=== PATIENT | female | born 1980 | race African-American/Black ===

== ENCOUNTER 2019-09-26 12:56 | Emergency (ER) | payer OTHER, SELFPAY ==
--- NOTE | ~2019-09-26 | XR_ITS ---
EXAMINATION: XR ankle LT min 3V, XR tibia fibula LT 2V DATE: 09/26/2019 13:41 INDICATION: Lateral left lower leg and ankle pain and bruising post fall TECHNIQUE: 1. Anteroposterior and lateral views of the left tibia and fibula were obtained. 2. Anteroposterior, oblique, mortise, and lateral views of the left ankle were obtained. COMPARISON: None. FINDINGS: Alignment is normal. No fracture. Small round corticated heterotopic ossicle near the tip of the late ral malleolus likely sequela of chronic sprain of the anterior talofibular ligament. Joint spaces are normal. No left knee or ankle joint effusions. Mild soft tissue swelling anterior to the ankle and o verlying the lateral malleolus and lateral aspect of the distal lower leg. IMPRESSION: 1. No acute osseous abnormality. Reviewed, dictated and finalized at location A. IMPRESSION: 1. No acute osseous abnormality.
[2019-09-26 13:06] VITALS: BP 120/84; PULSE 109; RESP 18; TEMP 37.1; O2SAT 100
--- NOTE | 2019-09-26 14:02 | ED.LOWEXIN ---
HPI - Extremity Injury (Lower) General Chief Complaint: Extremity Injury, Lower <Deng Starr PA-C - Last Filed: 09/26/19 14:05> Stated Complaint: L foot pain <Deng Starr PA-C - Last Filed: 09/26/19 14:05> Time Seen by Provider: 09/26/19 12:58 <Deng Starr PA-C - Last Filed: 09/26/19 14:05> Source: patient <LESLEY Krueger Last Filed: 09/26/19 14:05> Mode of arrival: ambulatory <Deng Starr PA-C - Last Filed: 09/26/19 14:05> Limitations: no limitations <LESLEY Krueger Last Filed: 09/26/19 14:05> History of Present Illness HPI Narrative: Patient is a 38-year-old female who presents to emergency department for evaluation of left leg pain slipped and fell on a wet surface this prior Tuesday with bruising to the left hip and lower leg patient notes moderate aching pain down around the ankle joint patient also notes some bruising to the left forearm but notes minimal pain at this location patient has not been seen for this complaint presents in no distress <Deng Starr PA-C - Last Filed: 09/26/19 14:05> Related Data Allergies/Adverse Reactions: Allergies Allergy/AdvReac Type Severity Reaction Status Date / Time No Known Allergies Allergy Unverified 07/26/16 10:19 <Deng Starr PA-C - Last Filed: 09/26/19 14:05> Review of Systems Review of Systems: All systems reviewed & are unremarkable except as noted in HPI and below <Deng Starr PA-C - Last Filed: 09/26/19 14:05> [facility] Family History Family History: Family History (Updated 06/09/17 @ 10:37 by DOCTOR UNKNOWN) Father Family history of coronary artery disease Patient's father is in good health Mother Hypertension Patient's mother is in good health <Deng Starr PA-C - Last Filed: 09/26/19 14:05> Social History Social History: Social History Smoking status: Never smoker Alcohol intake: current <Deng Starr PA-C - Last Filed: 09/26/19 14:05> Exam Narrative: Exam Narrative: GENERAL: Well-appearing, well-nourished, and in no acute distress. HEAD: Normocephalic, atraumatic. EYES: PERRLA and EOMI. ENT: Nares clear, no rhinorrhea or epistaxis. Mucous membranes moist. CHEST: Clear to auscultation. No respiratory distress. No wheezes rales or rhonchi HEART: Regular rate and rhythm. No murmur heard. EXTREMITIES: Normal range of motion. Bruising to the mid to lower lo and lateral ankle 2 bruises to the left lateral thigh. Bruising of the left mid forearm SKIN: Warm, dry, no rash. NEURO: No focal deficits. Alert and oriented x3. Neurovascularly intact. Capillary refill less than 2 seconds PSYCH: Normal mood and affect. <LESLEY Krueger Last Filed: 09/26/19 14:05> Course Course Emergency Course: Patient in the room in no distress aware of case findings treatment plan and diagnosis <LESLEY Krueger Last Filed: 09/26/19 14:05> Vital Signs Vital signs: Vital Signs Temperature 98.8 F 09/26/19 13:06 Pulse Rate 109 H 09/26/19 13:06 Respiratory Rate 18 09/26/19 13:06 Blood Pressure 120/84 09/26/19 13:06 Pulse Oximetry 100 09/26/19 13:06 Temperature 98.8 F 09/26/19 13:06 Pulse Rate 109 H 09/26/19 13:06 Respiratory Rate 18 09/26/19 13:06 Blood Pressure 120/84 09/26/19 13:06 Pulse Oximetry 100 09/26/19 13:06 <LESLEY Krueger Last Filed: 09/26/19 14:05> Vital Signs Temperature 98.8 F 09/26/19 13:06 Pulse Rate 109 H 09/26/19 13:06 Respiratory Rate 18 09/26/19 13:06 Blood Pressure 120/84 09/26/19 13:06 Pulse Oximetry 100 09/26/19 13:06 Temperature 98.8 F 09/26/19 13:06 Pulse Rate 109 H 09/26/19 13:06 Respiratory Rate 18 09/26/19 13:06 Blood Pressure 120/84 09/26/19 13:06 Pulse Oximetry 100 09/26/19 13:06 <Dee Van MD - Last Filed: 09/26/19 19:0
== END 2019-09-26 14:22 | disposition home or self-care (01) ==
PROVIDERS: Emergency Provider General Practice
DX: S93.402A Sprain of unspecified ligament of left ankle, initial encounter (principal); W01.0XXA Fall on same level from slipping, tripping and stumbling without subsequent striking against object, initial encounter
CPT/HCPCS: 73590; 73610; 99284

== ENCOUNTER 2020-05-29 12:40 | Emergency (ER) | payer OTHER, SELFPAY ==
[2020-05-29 13:01] VITALS: BP 129/87; PULSE 102; RESP 18; TEMP 38.1; O2SAT 99
--- NOTE | 2020-05-29 13:26 | ED.URI ---
HPI - URI/Sore Throat General Chief Complaint: Upper Respiratory Infection Stated Complaint: Chills,body aches,fever Time Seen by Provider: 05/29/20 13:25 Source: patient Mode of arrival: ambulatory Limitations: no limitations History of Present Illness HPI Narrative: Guerda Campbell is a 39-year-old female with a PMH of Covid in January who [facility] with fever that started today but body aches severe headache nausea and fatigue that started on Tuesday. She states that she feels worse as far as energy and muscle aches today although her headache is improved somewhat in the last day or 2. 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 EYES: Denies visual changes, redness, discharge. ENT: has rhinorrhea, has congestion, sore throat, otalgia. CARDIOVASCULAR: Denies chest pain, palpitations, edema. RESPIRATORY: Denies dyspnea, wheezing, cough GASTROINTESTINAL: Denies abdominal pain, nausea, vomiting, diarrhea. GENITOURINARY: Denies dysuria, hematuria, abnormal discharge SKIN: Denies rash or itching. NEUROLOGIC: Denies numbness, or focal weakness. PSYCHIATRIC: Denies anxiety or depression. Has myalgias PMFSH Past Medical History Medical History COVID-19 Had Covid in January 2020 Family History Family History Father Family history of coronary artery disease Patient's father is in good health Mother Hypertension Patient's mother is in good health Social History Social History Smoking status: Never smoker Alcohol intake: current Comments At time of signature, I agree with nursing past medical, surgical, social and family history. There is no relevant family history pertinent to the presenting complaint. Exam Narrative: Exam Narrative: GENERAL: This is a well-nourished, well-developed patient, in mild distress. Has fever HEAD: normocephalic, atraumatic. EYES:Sclera clear/white. Vision is grossly intact. EARS: External ears normal, auditory canals erythema and without drainage, TMs with fluid behind TMs without perforation. Hearing grossly intact. NOSE: External nose normal without nasal discharge, nares without redness, has rhinorrhea. THROAT: Mucous membranes moist, posterior pharynx erythema NECK: Neck supple, non-tender CARDIOVASCULAR: Regular rate and rhythm without murmurs, gallops, or rubs. RESPIRATORY: Clear to auscultation. Breath sounds equal bilaterally. No wheezes, rales, or rhonchi. GASTROINTESTINAL: Abdomen soft, non-tender, SKIN: warm, intact with no suspicious lesions or rash, good texture and turgor. NEURO: awake, alert, and oriented to person, place and time. There were no obvious focal neurologic abnormalities. Steady gait EXTREMITIES: Normal range of motion. BACK: Nontender without deformity Course Course Emergency Course: Patient is a 39-year-old female with a prior history of Covid in January who comes to [facility] with myalgias and fatigue, fever this morning all the symptoms started on Tuesday Rapid Covid is negative as well as flu and strep negative Covid PCR done and sent Started on prednisone Zyrtec and Mucinex, patient educated on hydration Vital Signs Vital signs: Vital Signs Temperature 100.5 F H 05/29/20 13:01 Pulse Rate 102 H 05/29/20 13:01 Respiratory Rate 18 05/29/20 13:01 Blood Pressure 129/87 05/29/20 13:01 Pulse Oximetry 99 05/29/20 13:01 Temperature 100.5 F H 05/29/20 13:01 Pulse Rate 102 H 0
[2020-05-30 19:49] LABS: SARS-CoV-2 RNA PCR Negative
== END 2020-05-29 14:12 | disposition home or self-care (01) ==
PROVIDERS: Emergency Provider Nurse Practitioner; PCP Family Medicine
DX: J05.10 Acute epiglottitis without obstruction (principal); Z20.822 Contact with and (suspected) exposure to COVID-19
CPT/HCPCS: 87081; 87426; 87804; 87880; 99213; C9803; G0463; U0003; U0005

== ENCOUNTER 2020-08-05 09:55 | Emergency (ER) | payer OTHER, SELFPAY ==
--- NOTE | ~2020-08-05 | XR_ITS ---
EXAMINATION: XR chest 2V EXAM DATE: 08/05/2020 11:21 INDICATION: Chest pain non smoker. TECHNIQUE: Frontal and lateral projections of the chest obtained and reviewed. There is no prior karen dy for comparison. FINDINGS: The lungs are clear. There are no pleural effusions. The cardiomediastinal silhouette is within normal limits. There is no pneumothorax suspected. The bones and soft tissues are unremarkab le. IMPRESSION: Normal chest x-ray exam. Reviewed, dictated and finalized at location B. IMPRESSION: Normal chest x-ray exam.
[2020-08-05 10:21] VITALS: BP 122/71; PULSE 81; RESP 16; TEMP 36.8; O2SAT 100
--- NOTE | 2020-08-05 10:52 | ECG_ITS ---
Measurements Intervals [place] Rate: 64 P: 51 WV: 160 QRS: 59 QRSD: 85 T: 42 QT: 386 QTc: 400 Interpretive Statements SINUS RHYTHM POSSIBLE LEFT ATRIAL ENLARGEMENT INCOMPLETE RIGHT BUNDLE BRANCH BLOCK BORDERLINE ECG Electronically Signed On 08-05-2020 17:03:02 CDT by Wero Cordero D.O.
--- NOTE | 2020-08-05 10:55 | ED.GENADULT ---
HPI - General Adult General Chief complaint: Chest Pain Stated complaint: chest pain/sob Time Seen by Provider: 08/05/20 10:55 History of Present Illness HPI narrative: 39-year-old female presents to the [facility] with complaints of sternal chest pain since Tuesday. Patient reports that she has had shortness of breath, cough, chest tightness since February when she had Covid. States over the weekend it did get worse. Left sternal border is tender to palpation and movement Denies any radiation of pain. Denies any significant past medical or surgical history. Not look acutely ill. Related Data Home Medications Medication Instructions Recorded Confirmed propranolol 1 mg PO TID 08/05/20 08/05/20 Allergies Allergy/AdvReac Type Severity Reaction Status Date / Time No Known Allergies Allergy Verified 08/05/20 11:00 Review of Systems Review of Systems: All systems reviewed & are unremarkable except as noted in HPI and below Constitutional: Constitutional: Reports no additional constitutional complaints, Denies chills and Denies fever(s) Eyes: Eyes: Reports no additional eye complaints ENT: Reports system reviewed and no additional complaints, except as documented Cardiovascular: Cardiovascular: Reports as per HPI, Reports chest pain (Chest wall pain left sternal border), Denies rapid heart rate, Denies radiating jaw, neck or arm pain and Denies slow heart rate Respiratory: Respiratory: Reports as per HPI, Denies chest congestion, Reports cough, Reports dyspnea and Denies wheezing Comments: Intermittent symptoms since February when she had Covid Gastrointestinal: Gastrointestinal: Reports no additional gastrointestinal complaints, Denies abdominal pain, Denies nausea and Denies vomiting Musculoskeletal: Musculoskeletal: Reports no additional musculoskeletal complaints, Denies back pain, Denies myalgias and Denies muscle cramps Integumentary/Breasts: Skin/Breast: Reports system reviewed and no additional complaints, except as docu Neurologic: Reports system reviewed and no additional complaints, except as documented, Denies vertigo, Denies dizziness, Denies headache(s), Denies focal weakness and Denies weakness Psychiatric: Psychiatric: Reports no additional psychiatric complaints Allergic/Immunologic: Allergic/Immunologic: Reports no additional allergic/immunologic complaints, Denies lip swelling, Denies throat swelling, Denies tongue swelling and Denies wheezing PMFSH Past Medical History Medical History COVID-19 Had Covid in January 2020 Family History Family History Father Family history of coronary artery disease Patient's father is in good health Mother Hypertension Patient's mother is in good health Social History Social History Smoking status: Never smoker Alcohol intake: current Gender identity (if verbalized by the patient): Female Comments At the time of my signature, I reviewed and agree with the nursing past medical, surgical, social, and family history. There is no relevant family history pertinent to the patient complaint. Exam Const: General: healthy appearing, no acute distress and alert; No diaphoretic Nutritional Appearance: well nourished Orientation/consciousness: patient oriented x3 Limitations: no limitations HENMT: Head: normal to inspection Eyes: Conjunctivae: conjunctivae normal Pupils: Equal, round and reactive pupils present Neck: Neck: normal visual inspection, no lymphadenopathy and no meningeal signs Chest: Chest palpation & inspection: normal inspection of the chest Resp: Effort & Inspection: normal respiratory effort and no use of accessory muscles Auscultation: clear to auscultation bilaterally, no crackles, no rales, no rhonchi and no wheezes Cardio: Rate: regular rate Rhythm: regular rhythm GI: GI Pal
== END 2020-08-05 12:02 | disposition home or self-care (01) ==
PROVIDERS: Emergency Provider Nurse Practitioner; PCP Family Medicine
DX: M94.0 Chondrocostal junction syndrome [Tietze] (principal); Z86.16 Personal history of COVID-19; R01.1 Cardiac murmur, unspecified; I45.10 Unspecified right bundle-branch block
CPT/HCPCS: 71046; 93005; 99213; G0463

== ENCOUNTER 2020-08-26 17:33 | Emergency (ER) | payer OTHER, SELFPAY ==
[2020-08-26 17:43] VITALS: BP 138/83; PULSE 98; RESP 16; TEMP 37.1; O2SAT 99
--- NOTE | 2020-08-26 17:52 | ED.FEMALEGU ---
HPI - Female Genitourinary General Chief complaint: Urogenital-Female Stated complaint: Abdominal Pain,Back Pain Time Seen by Provider: 08/26/20 17:52 Source: patient and RN notes reviewed Mode of arrival: ambulatory Limitations: no limitations History of Present Illness HPI Narrative: 39-year-old female presents to the [facility] with symptoms of a UTI that started on Tuesday. Patient reports symptoms of frequent urination yesterday, decreased urination today. Has lower back pain, suprapubic pain. States she has had a fever yesterday at 101. Also reports chills. Has had nausea without vomiting. Denies back pain. Related Data Home Medications Medication Instructions Recorded Confirmed propranolol 1 mg PO TID 08/05/20 08/05/20 Allergies Allergy/AdvReac Type Severity Reaction Status Date / Time No Known Allergies Allergy Verified 08/05/20 11:00 Review of Systems Review of Systems: All systems reviewed & are unremarkable except as noted in HPI and below Constitutional: Constitutional: Reports as per HPI and Reports chills Comments: Fever 101 yesterday Eyes: Eyes: Reports no additional eye complaints ENT: Reports system reviewed and no additional complaints, except as documented Cardiovascular: Cardiovascular: Reports no additional cardiovascular complaints and Denies chest pain Respiratory: Respiratory: Reports no additional respiratory complaints, Denies cough and Denies dyspnea Gastrointestinal: Gastrointestinal: Reports as per HPI, Denies abdominal pain, Denies diarrhea, Reports nausea and Denies vomiting Genitourinary: Genitourinary: Reports as per HPI, Reports nocturia and Reports dysuria Musculoskeletal: Musculoskeletal: Reports no additional musculoskeletal complaints Integumentary/Breasts: Skin/Breast: Reports system reviewed and no additional complaints, except as docu, Denies erythema and Denies rash Neurologic: Reports system reviewed and no additional complaints, except as documented Psychiatric: Psychiatric: Reports no additional psychiatric complaints Allergic/Immunologic: Allergic/Immunologic: Reports no additional allergic/immunologic complaints, Denies lip swelling, Denies throat swelling and Denies tongue swelling PMFSH Past Medical History Medical History COVID-19 Had Covid in January 2020 Family History Family History Father Family history of coronary artery disease Patient's father is in good health Mother Hypertension Patient's mother is in good health Social History Social History Smoking status: Never smoker Alcohol intake: current Gender identity (if verbalized by the patient): Female Comments At the time of my signature, I reviewed and agree with the nursing past medical, surgical, social, and family history. There is no relevant family history pertinent to the patient complaint. Exam Const: General: healthy appearing, no acute distress and alert Nutritional Appearance: well nourished Orientation/consciousness: patient oriented x3 Limitations: no limitations HENMT: Head: normal to inspection Eyes: Pupils: Equal, round and reactive pupils present Neck: Neck: normal visual inspection, no lymphadenopathy and no meningeal signs Chest: Chest palpation & inspection: normal inspection of the chest Resp: Effort & Inspection: normal respiratory effort and no use of accessory muscles Auscultation: clear to auscultation bilaterally, no crackles, no rales, no rhonchi and no wheezes Cardio: Rate: regular rate Rhythm: regular rhythm GI: GI Palp: Yes Soft to palpation and No Tenderness to palpation present (GI) : General: Yes no CVA tenderness Back/Spine/Pelvis: Back: no CVA tenderness Skin: General skin exam: normal color Rashes: no rashes Wounds: no wounds Neuro: General: patient oriented x3, moves
== END 2020-08-26 18:05 | disposition home or self-care (01) ==
PROVIDERS: Emergency Provider Nurse Practitioner; PCP Family Medicine
DX: N30.00 Acute cystitis without hematuria (principal); Z86.16 Personal history of COVID-19; R01.1 Cardiac murmur, unspecified
CPT/HCPCS: 81003; 87077; 87086; 87088; 87186; 99213; G0463

== ENCOUNTER 2021-03-12 18:11 | Emergency (ER) | payer OTHER, SELFPAY ==
[2021-03-12 18:17] VITALS: BP 150/82; PULSE 66; RESP 16; TEMP 36.7; O2SAT 100
--- NOTE | 2021-03-12 18:52 | ED.GENADULT ---
HPI - General Adult General Chief complaint: Upper Respiratory Infection Stated complaint: jeffers/cough Time Seen by Provider: 03/12/21 18:30 Source: patient and RN notes reviewed Mode of arrival: ambulatory Limitations: no limitations History of Present Illness HPI narrative: Patient presents today complaining of 5-day history of headache, nausea, dizziness, increased anxiety. Patient stopped her Lexapro 5 days ago cold turkey after taking it for 3 months. States she did not want to have to rely on it and states she was feeling better, that is why she stopped it. She took naproxen for her headache, which did provide some relief. She has an appointment with her doctor on 03/20/2021 for reevaluation of her medication. MD complaint: Headache, nausea, dizziness. Related Data Home Medications Medication Instructions Recorded Confirmed escitalopram oxalate 10 mg PO DAILY 03/12/21 03/12/21 Allergies Allergy/AdvReac Type Severity Reaction Status Date / Time No Known Allergies Allergy Verified 03/12/21 18:45 Review of Systems Review of Systems: CONSTITUTIONAL: Denies body aches, fever, chills, or sweats. EYES: Denies visual changes, redness, or discharge. ENT: Denies rhinorrhea, congestion, sore throat, or otalgia. CARDIOVASCULAR: Denies chest pain, palpitations, or edema. RESPIRATORY: Denies cough or dyspnea. GASTROINTESTINAL: Denies abdominal pain, vomiting, or diarrhea.+ Nausea GENITOURINARY: Denies dysuria or hematuria. SKIN: Denies rash, itching, or wounds. MUSCULOSKELETAL: Denies back pain, joint pain, or myalgia. NEUROLOGIC: Denies numbness, tingling, or weakness.+ Headache dizziness PSYCH: Denies depression. + Anxiety [facility] Past Medical History Medical History (Updated 03/12/21 @ 19:34 by Cherie Rick, RICH, DIMITRI) Anxiety COVID-19 Had Covid in January 2020 Family History Family History Father Family history of coronary artery disease Patient's father is in good health Mother Hypertension Patient's mother is in good health Social History Social History Smoking status: Never smoker Alcohol intake: current Gender identity (if verbalized by the patient): Female Comments At time of signature, I have reviewed and agree with nursing past medical, surgical, social and family history unless otherwise noted. Please see nursing chart for further information. There is no relevant family history pertinent to the presenting complaint Exam Narrative: GENERAL: Well-appearing, well-nourished, and in no acute distress. HEAD: Normocephalic, atraumatic. EYES: EOMI. No redness or drainage. Conjunctivae normal. ENT: Mucous membranes pink and moist. NECK: Normal AROM. Supple. No lymphadenopathy. CHEST: No respiratory distress. Clear to auscultation. HEART: Regular rate and rhythm. No murmur appreciated. Normal peripheral pulses. EXTREMITIES: Normal range of motion. No edema. SKIN: Warm, dry, no rash. Capillary refill normal. Normal skin turgor. NEURO: No focal deficits. Alert and oriented x3. Gait steady. PSYCH: + Mild anxiety. Course Course Emergency Course: Discussed with patient restarting her medication or continuing with her withdrawal symptoms and following up with her doctor in a week as scheduled. We will send in a prescription for Zofran for her nausea. Instructed her to continue the naproxen for her headache. Level of Care: Express Care Visit Vital Signs Vital signs: Vital Signs Temperature 98.0 F 03/12/21 18:17 Pulse Rate 66 03/12/21 18:17 Respiratory Rate 16 03/12/21 18:17 Blood Pressure 150/82 H 03/12/21 18:17 Pulse Oximetry 100 03/12/21 18:17 Temperature 98.0 F 03/12/21 18:17 Pulse Rate 66 03/12/21 18:17 Respiratory Rate 16 03/12/21 18:17 Blood Pressure 150/82 H 03/12/21 18:17 Pulse Oximetry 100 03/12/21 18:17 Reviewed. P
== END 2021-03-12 19:05 | disposition home or self-care (01) ==
PROVIDERS: Emergency Provider Nurse Practitioner; PCP Family Medicine
DX: F19.939 Other psychoactive substance use, unspecified with withdrawal, unspecified (principal); F41.9 Anxiety disorder, unspecified; Z86.16 Personal history of COVID-19
CPT/HCPCS: 99213; G0463

== ENCOUNTER 2024-02-24 14:09 | Outpatient (CLI) | payer BC, SELFPAY ==
--- NOTE | ~2024-02-24 | XR_ITS ---
XR hip RT min 2V Ordering provider: Uzma Acosta DO History: . M25.551 - Pain in right hip . Comparison: None. FINDINGS: BONES: No acute fracture or dislocation. HIP JOINT SPACES: Normal. SACROILIAC JOINT SPACES/LUMBAR SPINE: The sacroiliac joint spaces are normal. Normal visualized lower lumbar spine. PUBIC SYMPHYSIS: Normal. SOFT TISSUES: Normal. IMPRESSION: No acute osseous abnormality pelvis and right hip. Reviewed, dictated and finalized at location A. 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
--- NOTE | 2024-02-24 14:00 | ECHO_ITS ---
Patient Info Name: Ginny Suarez Age: 43 years : 1980 Gender: Female Ht: 67 in Wt: 190 lbs BSA: 2.04 m2 HR: 81 bpm BP: 127 / 86 mmHg Heart Rhythm: Sinus Rhythm Technical Quality: Good Exam Date: 02/24/2024 2:18 PM Exam Location: Echo Lab Patient Status: Outpatient Admit Date: 02/24/2024 Staff Ordering Physician: Uzma Acosta DO Private Tutors And Teachers: Lesly Gunter RDCS Attending Provider: Uzma Acosta DO Referring Physician: Dave DAVIS; Exam Type: CA echo doppler color flow Study Info Indications R01.1 - Cardiac murmur, unspecified Complete two-dimensional, color flow and Doppler transthoracic echocardiogram is performed. Strain analysis performed. Summary 1. Complete two-dimensional, color flow and Doppler transthoracic echocardiogram is performed. 2. The transthoracic echocardiogram is normal by two-dimensional, color flow imaging, and Doppler interrogation. 3. Technically difficult study with limited views. 4. Normal LV size and function. 5. Normal RV size and function. 6. Mild MR and TR with mild PulmHTN. 7. No pericardial effusion. Left Ventricle Left ventricular chamber dimension is normal. Left ventricular systolic function is normal, estimated at 65-70%. There is no increased left ventricular wall thickness. Right Ventricle Right ventricular chamber dimension is normal. Right ventricular systolic function is normal. Left Atria Left atrial chamber dimension is normal. Right Atria Right atrial chamber dimension is normal. Aortic Valve The aortic valve is trileaflet. There is no aortic valve sclerosis. There is no aortic valve stenosis. There is no aortic valve regurgitation. Pulmonic Valve The pulmonic valve is normal. There is trace pulmonic regurgitation. Mitral Valve The mitral valve has thickened leaflets. There is mild mitral valve regurgitation. Tricuspid Valve The tricuspid valve leaflets are normal. There is mild tricuspid valve regurgitation. Mild pulmonary hypertension, estimated pulmonary arterial systolic pressure is 35 mmHg. Pericardium/Pleural The pericardium appears normal. There is no pericardial effusion. Aorta The aortic root size at the sinus of Valsalva is normal. Left Ventricular Outflow Tract Name Value Normal LVOT 2D LVOT Diameter 1.9 cm LVOT Doppler LVOT Peak Gradient 9 mmHg LVOT Mean Gradient 4 mmHg LVOT VTI 29 cm LVOT VTI/AV VTI Ratio 0.8 LVOT Stroke Volume 87 ml LVOT CO 6.9 l/min LVOT CI 3.4 l/min/m2 Pulmonic Valve Name Value Normal RVOT Doppler RVOT Peak Gradient 4 mmHg PV Doppler PV Peak Gradient 7 mmHg Mitral Valve Name Value Normal MV Doppler MV Decel [place] 560 cm/s2 MV PHT 46 ms MV Area (PHT) 4.7 cm2 4.0-5.0 MV Diastolic Function MV E Peak Velocity 90 cm/s MV A Peak Velocity 54 cm/s MV E/A 1.6 MV Decel Time 160 ms Tricuspid Valve Name Value Normal TV Regurgitation Doppler TR Peak Velocity 250 cm/s TR Peak Gradient 25 mmHg Estimated PAP/RSVP RA Pressure 10 mmHg <=5 PA Systolic Pressure 35 mmHg <36 RV Systolic Pressure 35 mmHg <36 Aorta Name Value Normal Ascending Aorta Ao Root Diameter (MM) 2.6 cm Ao Root Diam Index (MM) 1.3 cm/m2 Aortic Valve Name Value Normal AV Doppler AV Peak Velocity 186 cm/s AV Peak Gradient 14 mmHg AV Mean Gradient 8 mmHg AV VTI 39 cm AV Area (Cont Eq VTI) 2.3 cm2 >=3.0 AV Area (Cont Eq Miguel Angel) 2.4 cm2 AV Regurgitation 2D LVOT Area 3.0 cm2 Ventricles Name Value Normal LV Dimensions 2D/MM IVS Diastolic Thickness (2D) 0.9 cm 0.6-1.0 IVS Diastole Thickness (MM) 1.2 cm 0.6-0.9 LVID Diastole (2D) 4.5 cm 3.8-5.2 LVID Diastole (MM) 4.1 cm 3.8-5.2 LVIW Diastolic Thickness (2D) 0.9 cm 0.6-0.9 LVIW Diastolic Thickness (MM) 0.8 cm 0.6-0.9 LVID Systole (2D) 2.9 cm 2.2-3.5 LVID Systole (MM) 2.1 cm 2.2-3.5 LVOT Diameter 1.9 cm LV Mass (2D Cubed) 135.69 g 67.00-162.00 LV Mass Index (2D Cubed) 66 g/m2 43-95 Relative Wall Thickness (2D) 0.41 LV Mass (MM Cubed) 132.26 g 67.00-162.00 LV Mass Index (MM Cubed) 65 g/m2 43-95 Relative Wall Thickness (MM) 0.40 LV Fractional Shortening/Ejection Fraction 2D/MM LV Fractional Shortening (2D) 35 % 27-45 LV Fractional Shortening (MM) 49 % 27-45 LV EF (MM Teicholz) 81 % 54-74 LV EF (2D Teicholz) 65 % 54-74 LV Diastolic Volume (4C MOD) 83 ml LV EF (4C MOD) 59 % LV Diastolic Volume (2C MOD) 92 ml LV EF (2C MOD) 76 % LV Diastolic Volume (BP MOD) 88 ml 46-106 LV Diastolic Volume Index (BP MOD) 43 ml/m2 29-61 LV Systolic Volume (BP MOD) 28 ml 14-42 LV Systolic Volume Index (BP MOD) 14 ml/m2 8-24 LV EF (BP MOD) 68 % 54-74 LV Diastolic Length (4C) 8.1 cm LV Systolic Length (4C) 7.1 cm LV Stroke Volume (4C MOD) 49 ml Atria Name Value Normal LA Dimensions LA Dimension (MM) 3.4 cm 2.7-3.8 EchoPAC Name Value Normal STEFANY AA peak sys SL (AWMA) 17.6 % AAS peak sys SL (AWMA) 17.1 % AI peak sys SL (AWMA) 26.5 % AL peak sys SL (AWMA) 16.7 % AP peak sys SL (AWMA) 14.0 % peak sys SL (AWMA) 24.4 % AVC (AWMA) 369 ms BA peak sys SL (AWMA) 19.3 % BAS peak sys SL (AWMA) 22.1 % BI peak sys SL (AWMA) 19.5 % BL peak sys SL (AWMA) 16.4 % BP peak sys SL (AWMA) 16.9 % BS peak sys SL (AWMA) 19.2 % G peak SL(A2C) (AWMA) 20.6 % G peak SL(A4C) (AWMA) 19.0 % G peak SL(APLAX) (AWMA) 17.7 % G peak SL(Avg) (AWMA) 19.1 % MA peak sys SL (AWMA) 17.6 % MAS peak sys SL (AWMA) 22.0 % MA peak sys SL (AWMA) 23.1 % ML peak sys SL (AWMA) 14.4 % MP peak sys SL (AWMA) 15.9 % MS peak sys SL (AWMA) 22.6 % Report Signatures Amended by Cameron Mccarty MD on 02/24/2024 16:53
== END 2024-02-24 14:10 | disposition home or self-care (01) ==
LOC: ANHCARD 14:11
PROVIDERS: PCP Family Medicine; Visit Provider Family Medicine
DX: R01.1 Cardiac murmur, unspecified (principal); M25.551 Pain in right hip
CPT/HCPCS: 73502; 93306

== ENCOUNTER 2024-02-28 10:31 | Outpatient (CLI) | payer BC, SELFPAY ==
[2024-02-28 11:01] LABS: Basophils Percent Auto 0.7 % (0.2-1.2); Eosinophils Percent Auto 0.7 % (0-4.4); Hematocrit 28.8 % (37.0-47.0); Hemoglobin 8.5 g/dL (12.0-15.0); Immature Granulocyte Absolute 0.02 K/mm3 (0.00-0.031); Immature Granulocyte Percent A 0.3 % (0-0.5); Lymphocytes Absolute Auto 1.52 K/mm3 (0.9-3.2); Lymphocytes Percent Auto 24.8 % (18.3-44.2); Mean Corpuscular HGB Conc 29.5 g/dl (32-36); Mean Corpuscular Hemoglobin 19.8 pg (26-34); Mean Platelet Volume 9.3 fl (7.4-10.4); Monocytes Absolute Auto 0.3 K/mm3 (0.1-0.6); Monocytes Percent Auto 5.2 % (2.6-8.5); Neutrophils Absolute Auto 4.2 K/mm3 (1.3-6.7); Neutrophils Percent Auto 68.3 % (45.5-73.1); Platelet Count Result 315 k/mm3 (150-375); Red Cell Distribution Width 17.4 % (11.5-14.5); White Blood Count 6.1 K/mm3 (4.5-10.0)
[2024-02-28 11:16] LABS: Iron 15 ug/dL (37-170)
[2024-02-28 11:19] LABS: Alanine Aminotransferase 11 U/L (6-35); Albumin Level 4.2 g/dL (3.5-5.1); Alkaline Phosphatase 64 U/L (38-126); Anion Gap 6 mmol/L (4-12); Aspartate Amino Transferase 20 U/L (14-36); Bilirubin,Total 0.5 mg/dL (0.2-1.3); Blood Urea Nitrogen 12 mg/dL (7-17); Calcium 9.1 mg/dL (8.4-10.2); Carbon Dioxide 26 mmol/L (22-30); Chloride 107 mmol/L (98-107); Cholesterol 218 mg/dL (0-200); Estimated Glomerular Filt Rate > 60; Glucose 94 mg/dL (65-110); HDL Direct 66 mg/dL; Potassium 4.1 mmol/L (3.4-5.0); Sodium 139 mmol/L (137-145); Triglycerides 112 mg/dL (<150)
[2024-02-28 11:21] LABS: Hemoglobin A1C 5.1 % (<5.7)
[2024-02-28 11:25] LABS: Percent Iron Saturation 3 % (20-50)
[2024-02-28 11:31] LABS: LDL Cholesterol Direct 109 mg/dL
[2024-02-28 11:47] LABS: Vitamin D 25 Hydroxy 29.3 ng/mL
[2024-02-28 11:54] LABS: Ferritin 4.15 ng/mL (6.24-137)
[2024-02-28 12:00] LABS: Hepatitis C Virus Antibody Negative (Negative)
[2024-02-28 12:40] LABS: Anisocytosis 1+; Hypochromasia 1+; Ovalocytes 1+; Platelet Estimate Adequate (Adequate)
[2024-02-28 12:41] LABS: Schistocytes None Seen
--- OUTSIDE RECORDS SUMMARY | 2024-03-06 06:08 | XMS_ITS | Data Portability ---
Author Organization [facility] [place] Address [address] [place] [address] Assessment Encounter Date Assessment Date Assessment LastModified by Organization Details LastModified Time 04/11/2020 04/11/2020 Pap/HPV 03/12/2020 (see records)- HGSIL w/ +HPV Pap/hpv 2011 (nexGen) LGSIL +HPV [email or web address] Not available 04/11/2020 12:50:17 Plan of Treatment Reminders Order Date Submit Date Provider Last Modified By Organization Details Last Modified Time Details Appointments None record ed. Lab None record ed. Referral None record ed. Procedures None record ed. Surgeries None record ed. Imaging None record ed. Medication Orders None record ed. Patient TargetsNo targets recorded. Patient InstructionsNo instructions recorded. Reason for Referral None Reported. Procedures Surgical History Date Name Laterality Status Provider Name and Address Organization Details Recorded Time 03/06/2020 Date of Last Pap Smear completed Jennifer Wells [facility] 04/11/2020 11:33:07 Imaging Results None recorded. Procedure Notes None recorded. Medical Equipment None Reported. Allergies No known drug allergies Medications Name Sig Start Date Stop Date Status Note LastModified by Organization Details LastModified Time amoxicillin 875 mg tablet TK 1 T PO BID FOR 7 DAYS 04/11 completed Not Available Not Available Not Available propranolol 20 mg tablet TAKE 1 TABLET BY MOUTH THREE TIMES DAILY NEEDED active Not Available Not Available No t Available Vitals Date Recorded Body height Body mass index (BMI) Body weight Systolic blood pressure Diastolic blood pressure Provider Name and Address Organization Details Last Updated DateTime 04/11/2020 172.72 cm 30.6 kg/m2 21714.07 g 126 mm[Hg] 75 mm[Hg] Jennifer Wells [facility] 11:41:05 Social History None recorded. Functional Status None recorded. Mental Status None recorded. Family History Relationship Description Onset Age of this Age Resolved Age Notes LastModified by Organization Details LastModified Time Mother Anemia [email or web address] Not available 11:33:56 Mother Diabetes mellitus [email or web address] Not available 2020 11:34:26 Mother Cyst of ovary [email or web address] Not available 2020 11:34:54 Maternal Grandmother Carcinoma in situ of breast [email or web address] Not available 2020 11:34:05 Maternal Grandmother Heart disease [email or web address] Not available 2020 11:34:12 Maternal Grandmother Diabetes mellitus [email or web address] Not available 2020 11:34:26 Maternal Grandmother Hypertensive disorder [email or web address] Not available 2020 11:34:38 Maternal Grandmother Cyst of ovary [email or web address] Not available 2020 11:34:54 Maternal Grandmother Psychotic disorder [email or web address] Not available 2020 11:35:02 Maternal Grandmother Disorder of thyroid gland [email or web address] Not available 2020 11:35:10 Maternal Grandfather Diabetes mellitus [email or web address] Not available 2020 11:34:26 Maternal Grandfather Hypertensive disorder [email or web address] Not available 2020 11:34:38 Father Hypertensive disorder [email or web address] Not available 2020 11:34:38 Maternal Aunt Cyst of ovary [email or web address] Not available 2020 11:34:54 Medical History Condition Response Anxiety Disorder Y Anemia Y Gynecological History Statement/Question Response Date of Last Pap Smear 03/06/2020 Current Control Method None Desired Control Method None Date of LMP 03/19/2020 Obstetrics History GPAL:G 0 P 0 0 0 0 Past Encounters Encounter ID Performer Location Encounter Start Date Encounter Closed Date Diagnosis/Indication Diagnosis SNOMED-CT Code Diagnosis ICD10 Code Diagnosis Note [id number] [address] [address] 04/11/2020 11:11:30 04/11/2020 12:51:05 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 She was counseled on this procedure indepth, brochure/w ebsites resources for home review provided; all questions answered to patient's satisfacti on. She will return for colpo with Sonia Andres or other provider at [facility]. Time spent in visit is a total of 32 mins with at least 50% of visit consisting of counseling and review of plan of care. Additional precaution lisha measures were taken to minimize potential exposure to the Covid-19 virus during this patient? s visit, including available hand cut plug packer upon arrive, temperatur e check and being asked a series of screening questions. All staff wore face coverings during this encounter, as well as provided additional cleaning and sanitizing of all surfaces, including countertop s, pens, chairs, door handles, light switches, etc, prior to and following the patient? s visit. Health Concerns Section Related Observation LastModified by Organization Detai ls LastModified Time None Recorded Concern Status LastModified by Organization Details LastModified Time None Recorded Advance Directives Directive None Recorded Payers Encounter Date Sequence Insurance Name Policy Number Policy Guillaume Covered Member ID Guillaume Member ID Guarantor Name 04/11/2020 1 [facility] (MEDICAID HMO) [id number] Ginny Campbell [id number] Ginny Campbell Notes Date Note Type Note Provider Name and Address Organization Details Recorded Time 04/11/2020 text/html Patient is a 39yo AA female with Hx of tubal ligation that was referred to our facility for HGSIL +HPV pap smear completed 03/12/2020. 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 She is having no other issues. Her Medical Hx has been updated in our system today. Monogamous Hx of LGSIL 2011 (see nexGen) hx Tubal ligation Treated for anxiety by pcp Taisha Thompson, CASSANDRA-BC [address], [place], [address], [facility] 04/11/2020 12:50:57 OBGyn Episode Ob Episode Information Episode Created Date Number of Fetuses Patient Bloodtype Patient rh Status Prepregnancy Weight lbs Domestic Partner Domestic Partner Phone Father Name Lute Packer Or Applier Status 04/11/19 21 1 CLOSED Fetus Data First Name Last Name Admitted to NICU Weight (g) Sex Living Outcome Pediatric Complications Fetus ID Race Codes Race Delivery Type Full Term [id number] Vaginal Delivery Julio Calculation Initial Julio Date Initial Exam Date Initial Exam Provider Initial Ultrasound Date Last Menstrual Period Date Ultra Sound Weeks Gestation 0 Eighteen To Twenty Week Julio Update Ultra Sound Date Fundal Height At Umbil Quickening Date Ultra Sound Latest Weeks Gestation Final Julio Confirmed By Final Julio Confirmed Date Final Julio Date Ultra Sound Latest Days Gestation 0 0 Menstrual History Last Menstrual Date Menses Monthly On Bcp Conception Prior Menses Frequency Hcg Plus Date Menarche Onset Age Delivery Information Delivery Date Delivery Type Labor Anesthesia Weeks Gestation Incision Type Labor Labor Length Hrs Delivered By Post Complications Tubal Sterilization Discharge Date Comments 7 Discharge Information Feeding Method Contraceptive Method Maternal HG B and HCT Levels Ob Episode Information Episode Created Date Number of Fetuses Patient Bloodtype Patient rh Status Prepregnancy Weight lbs Domestic Partner Domestic Partner Phone Father Name Lute Packer Or Applier Status 04/11/19 21 1 CLOSED Fetus Data First Name Last Name Admitted to NICU Weight (g) Sex Living Outcome Pediatric Complications Fetus ID Race Codes Race Delivery Type Full Term [id number] Vaginal Delivery Julio Calculation Initial Julio Date Initial Exam Date Initial Exam Provider Initial Ultrasound Date Last Menstrual Period Date Ultra Sound Weeks Gestation 0 Eighteen To Twenty Week Julio Update Ultra Sound Date Fundal Height At Umbil Quickening Date Ultra Sound Latest Weeks Gestation Final Julio Confirmed By Final Julio Confirmed Date Final Julio Date Ultra Sound Latest Days Gestation 0 0 Menstrual History Last Menstrual Date Menses Monthly On Bcp Conception Prior Menses Frequency Hcg Plus Date Menarche Onset Age Delivery Information Delivery Date Delivery Type Labor Anesthesia Weeks Gestation Incision Type Labor Labor Length Hrs Delivered By Post Complications Tubal Sterilization Discharge Date Comments 2 Discharge Information Feeding Method Contraceptive Method Maternal HG B and HCT Levels
== END 2024-02-28 10:32 | disposition home or self-care (01) ==
LOC: ANHLAB 10:35
PROVIDERS: PCP Family Medicine; Visit Provider Family Medicine
DX: R53.83 Other fatigue (principal); Z13.1 Encounter for screening for diabetes mellitus; Z11.59 Encounter for screening for other viral diseases; Z13.6 Encounter for screening for cardiovascular disorders
CPT/HCPCS: 36415; 80053; 80061; 82306; 82728; 83036; 83540; 83550; 84443; 85025; 86803

== ENCOUNTER 2024-06-22 15:22 | Emergency (ER) | payer BC, SELFPAY ==
--- NOTE | ~2024-06-22 | XR_ITS ---
XR chest 2V Ordering provider: Andrez Vickers MD History: 43 years Female with . cp H/A LIGHTHEADED BILAT LOW LEG SWELLING HX PULM HTN . Comparison: August 05, 2020 FINDINGS: MEDIASTINUM: The cardiac silhouette is not enlarged. LUNGS: No infiltrates, effusions or pneumothorax. OTHER: No free air under the diaphragm. IMPRESSION: No acute cardiopulmonary pathology. Reviewed, dictated and finalized at location A.
[2024-06-22 15:52] VITALS: BP 141/101; PULSE 91; RESP 17; TEMP 37.1; O2SAT 100
--- NOTE | 2024-06-22 16:00 | ECG_ITS ---
Test Date: 2024-06-22 16:06:06 Measurements Intervals [place] Rate: 70 P: 57 MS: 156 QRS: 60 QRSD: 82 T: 47 QT: 387 QTc: 420 Interpretive Statements SINUS RHYTHM No previous ECG available for comparison Electronically Signed On 06-22-2024 19:15:40 CDT by Kinjal Santa
[2024-06-22] MEDS: ASPIRIN 81 MG CHEWABLE TABLET 324 MG PO (16:06)
[2024-06-22 16:12] VITALS: PULSE 67
[2024-06-22 16:19] LABS: Basophils Absolute Auto 0.1 K/mm3 (0.0-0.1); Basophils Percent Auto 0.6 % (0.2-1.2); Eosinophils Absolute Auto 0.1 K/mm3 (0-0.3); Eosinophils Percent Auto 0.9 % (0-4.4); Hematocrit 29.3 % (37.0-47.0); Hemoglobin 8.9 g/dL (12.0-15.0); Immature Granulocyte Absolute 0.03 K/mm3 (0.00-0.031); Immature Granulocyte Percent A 0.4 % (0-0.5); Lymphocytes Absolute Auto 1.67 K/mm3 (0.9-3.2); Lymphocytes Percent Auto 21.1 % (18.3-44.2); Mean Corpuscular HGB Conc 30.4 g/dl (32-36); Mean Corpuscular Hemoglobin 22.7 pg (26-34); Mean Corpuscular Volume 74.7 fl (80-100); Mean Platelet Volume 9.1 fl (7.4-10.4); Monocytes Absolute Auto 0.5 K/mm3 (0.1-0.6); Monocytes Percent Auto 6.1 % (2.6-8.5); Neutrophils Absolute Auto 5.6 K/mm3 (1.3-6.7); Neutrophils Percent Auto 70.9 % (45.5-73.1); Platelet Count Result 251 k/mm3 (150-375); Red Blood Count 3.92 M/mm3 (4.2-5.4); Red Cell Distribution Width 16.7 % (11.5-14.5); White Blood Count 7.9 K/mm3 (4.5-10.0)
[2024-06-22 16:33] LABS: Alanine Aminotransferase 16 U/L (6-35); Alkaline Phosphatase 55 U/L (38-126); Anion Gap 6 mmol/L (4-12); Aspartate Amino Transferase 19 U/L (14-36); Bilirubin,Total 0.4 mg/dL (0.2-1.3); Blood Urea Nitrogen 13 mg/dL (7-17); Calcium 8.7 mg/dL (8.4-10.2); Carbon Dioxide 28 mmol/L (22-30); Chloride 104 mmol/L (98-107); Estimated CRCL calculation 90 ml/min; Estimated Glomerular Filt Rate > 60; Glucose 99 mg/dL (65-110); Lipase 105 U/L (23-300); Potassium 3.9 mmol/L (3.4-5.0); Sodium 138 mmol/L (137-145)
[2024-06-22 16:40] LABS: Partial Thromboplastin Time 25.9 Seconds (22.3-36.8); Prothrombin Time 13.6 Seconds (11.1-14.7)
[2024-06-22 16:44] LABS: Troponin I < 0.012 ng/mL (0.000-0.034)
[2024-06-22 16:45] LABS: Microcytosis 1+ (NORMAL); Platelet Estimate Adequate (Adequate)
[2024-06-22 16:46] LABS: Hypochromasia 2+; Schistocytes None Seen
[2024-06-22 17:00] LABS: NT Pro B Type Natriuretic Pept 74 pg/mL (19.9-100)
--- NOTE | 2024-06-22 17:20 | ED_ITS ---
HPI - General Adult General Chief complaint: Dizziness Stated complaint: Dizziness, ankles swelling, feels faint Time Seen by Provider: 06/22/24 16:23 History of Present Illness HPI narrative: 43-year-old female presented to the emergency department for evaluation for lower extremity edema. Patient reports he did have a recent cardiac workup she had a cardiac echo that was within normal limits. Patient states he does have intermittent swelling of feet and ankles. Patient denies any associated chest pain or shortness of breath. Patient states she does drink approximately 200 oz of water every day. Patient denies any high salt intake. Upon arrival to emergency department patient's legs are no longer swollen but patient has had her feet elevated while on the bed. Related Data Home Medications ?Medication ?Instructions ?Recorded ?Confirmed ?Last Taken ?Type No Home Medications 01/31/24 04/13/24 Unknown History Allergies Allergy/AdvReac Type Severity Reaction Status Date / Time No Known Allergies Allergy Verified 06/22/24 15:57 Review of Systems 2 Review of Systems: All systems reviewed & are unremarkable except as noted in HPI and below PMFSH Past Medical History Medical History (Updated 06/22/24 @ 17:24 by Andrez Vickers MD) Iron deficiency anemia, unspecified Mild pulmonary hypertension Generalized anxiety disorder Heart murmur Family History Family History Father Family history of coronary artery disease Patient's father is in good health Mother Hypertension Patient's mother is in good health Social History Social History Smoking status: Never smoker Alcohol intake: current Gender identity (if verbalized by the patient): Female Exam 2 Narrative: APPEARANCE: Well appearing, no pain, no distress, well-nourished. HEAD: normocephalic, atraumatic. EYES: PERRLA/EOMI, conjunctivae clear. NOSE: Normal no drainage EARS:TMS clear with good light reflex. THROAT: Pharynx clear, no exudate. NECK: Supple. No adenopathy, no masses. RESPIRATORY: Airway patent, respirations nonlabored. Clear to auscultation bilaterally, no rales, rhonchi, wheezing. CARDIOVASCULAR: Regular rate and rhythm without murmurs rubs or gallops. ABDOMINAL: Soft, nontender, nondistended, normal bowel sounds MUSCULOSKELETAL: Moves all extremities. Strength/ROM intact, No edema, No calf tenderness. NEURO: Alert. Cranial nerves II through XII intact. Good gait. Good coordination SKIN: Warm, dry. Normal Color Course Vital Signs Vital signs: Vital Signs Temperature 98.8 F 06/22/24 15:52 Pulse Rate 91 06/22/24 15:52 Respiratory Rate 17 06/22/24 15:52 Blood Pressure 141/101 H 06/22/24 15:52 Pulse Oximetry 100 06/22/24 15:52 Oxygen Delivery Room Air 06/22/24 15:52 Temperature 98.4 F 06/22/24 17:47 Pulse Rate 71 06/22/24 17:47 Respiratory Rate 16 06/22/24 17:47 Blood Pressure 143/94 H 06/22/24 17:47 Pulse Oximetry 100 06/22/24 17:47 Oxygen Delivery Room Air 06/22/24 15:52 Medical Decision Making MDM Narrative Medical decision making narrative: 43-year-old female present to the emergency department for evaluation for lower extremity edema that has resolved. Patient is currently afebrile with no leukocytosis and hemoglobin of 8.9 patient does have history knee Lawanda and this is similar to her baseline. Patient's INR is 1.0. Patient has no all electrolyte abnormalities. Patient's troponin is negative. Patient's proBNP is not elevated. Chest x-ray shows no cardiopulmonary abnormality. Patient was advised to decrease her fluid intake to approximately 100 oz and to see if this helped with the lower extremity swelling. Differential Diagnosis Differential Diagnosis: CHF, fluid overload, edema, cellulitis, DVT Vital Signs Vital Signs: Vital Signs Temperature 98.8 F 06/22/24 15:52 Pulse Rate 91 06/22/24 15:52 Respiratory Rate 17 06/22/24 15:52 Blood Pressure 141/101 H 06/22/24 15:52 Pulse Oximetry 100 06/22/24 15:52 Oxygen Delivery Room Air 06/22/24 15:52 Temperature 98.4 F 06/22/24 17:47 Pulse Rate 71 06/22/24 17:47 Respiratory Rate 16 06/22/24 17:47 Blood Pressure 143/94 H 06/22/24 17:47 Pulse Oximetry 100 06/22/24 17:47 Oxygen Delivery Room Air 06/22/24 15:52 Lab Data Lab results reviewed: Yes I reviewed the patient's lab results. 06/22/24 16:11 06/22/24 16:11 Labs: Lab Results 06/22/24 Range/Units 16:11 WBC 7.9 (4.5-10.0) K/mm3 RBC 3.92 L (4.2-5.4) M/mm3 Hgb 8.9 L (12.0-15.0) g/dL Hct 29.3 L (37.0-47.0) % MCV 74.7 L (80-100) fl MCH 22.7 L (26-34) pg MCHC 30.4 L (32-36) g/dl RDW 16.7 H (11.5-14.5) % Plt Count 251 (150-375) k/mm3 MPV 9.1 (7.4-10.4) fl Immature Gran % (Auto) 0.4 (0-0.5) % Neut % (Auto) 70.9 (45.5-73.1) % Lymph % (Auto) 21.1 (18.3-44.2) % Mower % (Auto) 6.1 (2.6-8.5) % Eos % (Auto) 0.9 (0-4.4) % Baso % (Auto) 0.6 (0.2-1.2) % Lymph # (Auto) 1.67 (0.9-3.2) K/mm3 Mower # (Auto) 0.5 (0.1-0.6) K/mm3 Eos # (Auto) 0.1 (0-0.3) K/mm3 Baso # (Auto) 0.1 (0.0-0.1) K/mm3 Abs Immat Gran (auto) 0.03 (0.00-0.031) K/mm3 Absolute Neuts (auto) 5.6 (1.3-6.7) K/mm3 Absolute Nucleated RBC 0.000 (0.0-0.012) K/mm3 Band Neutrophils % Not Reportable Nucleated RBC % 0.0 (0.0-0.2) % Platelet Estimate Adequate (Adequate) Hypochromasia 2+ Microcytosis 1+ (NORMAL) Schistocytes None seen PT 13.6 (11.1-14.7) Seconds INR 1.0 APTT 25.9 (22.3-36.8) Seconds Sodium 138 (137-145) mmol/L Potassium 3.9 (3.4-5.0) mmol/L Chloride 104 (98-107) mmol/L Carbon Dioxide 28 (22-30) mmol/L Anion Gap 6 (4-12) mmol/L BUN 13 (7-17) mg/dL Creatinine 0.85 (0.7-1.0) mg/dL Estim Creat Clear Calc 90 ml/min Estimated GFR > 60 (59 - ) Glucose 99 (65-110) mg/dL Calcium 8.7 (8.4-10.2) mg/dL Total Bilirubin 0.4 (0.2-1.3) mg/dL AST 19 (14-36) U/L ALT 16 (6-35) U/L Alkaline Phosphatase 55 (38-126) U/L Troponin I < 0.012 (0.000-0.034) ng/mL NT-Pro-B Natriuret Pep 74 (19.9-100) pg/mL Total Protein 7.0 (6.3-8.2) g/dL Albumin 4.0 (3.5-5.1) g/dL Lipase 105 (23-300) U/L Imaging Data Radiologist's impression: Impressions Chest X-Ray 06/22/24 16:28 IMPRESSION: No acute cardiopulmonary pathology. Discharge Plan Discharge Clinical Impression: Edema of lower extremity Patient Disposition: Home Condition: Stable Instructions: Antibiotic Form, Leg Edema (ED) Additional Instructions: Decrease your water intake to approximately 100 oz of water a day see if this help with your lower extremity edema. Have close follow-up with your primary care physician. If you have any worsening symptoms then please call or return to the emergency department. Patient Language: South Sudanese Prescriptions: No Action No Home Medications Follow-up/Referrals: Uzma Acosta DO [Primary Care Provider] -
[2024-06-22 17:47] VITALS: BP 143/94; PULSE 71; RESP 16; TEMP 36.9; O2SAT 100
--- OUTSIDE RECORDS SUMMARY | 2024-06-23 14:52 | XMS_ITS | CONTINUITY OF CARE DOCUMENT ---
Author Name sanjiv kincaid Address Unknown Organization [facility] Address [address] [place] [address] [address] [place] [address] Phone [phone] Care Team Providers Care Growth Media Mixer Mushroom Name Role Phone Jennifer Spencer MD Unavailable Jennifer Spencer MD Unavailable [phone] INSURANCE PROVIDERS Payer name Policy type / Coverage type [place] red [employer] party ID [facility] [id number]
--- OUTSIDE RECORDS SUMMARY | 2024-06-23 14:52 | XMS_ITS | Data Portability ---
Author Organization [facility] [place] Address [address] [place] [address] Assessment Encounter Date Assessment Date Assessment LastModified [...] of Last Pap Smear completed Jennifer Wells [facility] 04/11/2020 11:33:07 Imaging Results None recorded. [...] Updated DateTime 04/11/2020 172.72 cm 30.6 kg/m2 84392.07 g 126 mm[Hg] 75 mm[Hg] Jennifer Wells [facility] 11:41:05 Social History None recorded. 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 She was counseled on this procedure indepth, brochure/w ebsites resources for home review provided; all questions answered to patient's satisfacti on. She will return for colpo with Sonia Andres or other provider at [facility] [place] [place]. Time spent in visit is a total of 32 mins with at least 50% of visit consisting of counseling and review of plan of care. Additional precaution lisha measures were taken to minimize potential exposure to the Covid-19 virus during this patient s visit, including available hand postal carrier upon arrive, temperatur e check and being asked a series of screening questions. All staff wore face coverings during this encounter, as well as provided additional cleaning and sanitizing of all surfaces, including countertop s, pens, chairs, door handles, light switches, etc, prior to and following the patient s visit. Health Concerns Section Related Observation LastModified by Organization Detai ls LastModified Time None Recorded Concern Status LastModified by Organization Details LastModified Time None Recorded Advance Directives Directive None Recorded Payers Encounter Date Sequence Insurance Name Policy Number Policy Guillaume Covered Member ID Guillaume Member ID Guarantor Name 04/11/2020 1 [facility] (MEDICAID HMO) [id number] Ginny Campbell [id number] Ginny Campbell Notes Date Note Type Note Provider Name and Address Organization Details Recorded Time 04/11/2020 text/html Patient is a 39yo AA female with Hx of tubal ligation that was referred to our facility for HGSIL +HPV pap smear completed 03/12/2020. Denies manganese heater or other related issues today. She is having no other issues. Her Medical Hx has been updated in our system today. 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 04/11/2020 12:50:57 OBGyn Episode Ob Episode Information Episode Created Date Number of Fetuses Patient Bloodtype Patient rh Status Prepregnancy Weight lbs Domestic Partner Domestic Partner Phone Father Name Heart Surgeon Status 04/11/19 21 1 CLOSED Fetus Data [...] Domestic Partner Domestic Partner Phone Father Name Heart Surgeon Status 04/11/19 21 1 CLOSED Fetus Data [...]
--- OUTSIDE RECORDS SUMMARY | 2024-06-23 14:57 | XMS_ITS | CONTINUITY OF CARE DOCUMENT ---
Author Name sanjiv kincaid Address Unknown Organization [facility] Address [address] [place] [address] [address] [place] [address] Phone [phone] Care Team Providers Care Entertainment Production Professional Name Role Phone Jennifer Spencer MD Unavailable Jennifer Spencer MD Unavailable [phone] INSURANCE PROVIDERS Payer name Policy type / Coverage type [place] [employer] party ID [facility] [id number]
== END 2024-06-22 17:49 | disposition home or self-care (01) ==
PROVIDERS: Emergency Provider Emergency Medicine; PCP Family Medicine
DX: R60.0 Localized edema (principal); I27.20 Pulmonary hypertension, unspecified; D50.9 Iron deficiency anemia, unspecified; F41.1 Generalized anxiety disorder
CPT/HCPCS: 36415; 71046; 80053; 83690; 83880; 84484; 85025; 85610; 85730; 93005; 99284; A9270

== ENCOUNTER 2024-07-05 13:17 | Outpatient (CLI) | payer BC, SELFPAY ==
--- OUTSIDE RECORDS SUMMARY | 2024-07-05 07:25 | XMS_ITS | Data Portability ---
Author Organization [facility] [place] Address [address] [place] [address] Assessment Encounter Date Assessment Date Assessment LastModified [...] of Last Pap Smear completed Jennifer Wells [facility] 04/11/2020 11:33:07 Imaging Results None recorded. [...] Updated DateTime 04/11/2020 172.72 cm 30.6 kg/m2 76735.07 g 126 mm[Hg] 75 mm[Hg] Jennifer Wells [facility] 11:41:05 Social History None recorded. 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 She was counseled on this procedure indepth, brochure/w ebsites resources for home review provided; all questions answered to patient's satisfacti on. She will return for colpo with Sonia Andres or other provider at [facility] [place]. Time spent in visit is a total of 32 mins with at least 50% of visit consisting of counseling and review of plan of care. Additional precaution lisha measures were taken to minimize potential exposure to the Covid-19 virus during this patient s visit, including available hand bingo checker upon arrive, temperatur e check and being [...] Guillaume Member ID Guarantor Name 04/11/2020 1 [facility] (MEDICAID HMO) [id number] Ginny Campbell [id number] Ginny Campbell Notes Date Note Type Note Provider Name and Address Organization Details Recorded Time 04/11/2020 text/html Patient is a 39yo AA female with Hx of tubal ligation that was referred to our facility for HGSIL +HPV pap smear completed 03/12/2020. Denies medical technician assistant or other related issues today. She is having no other issues. Her Medical Hx has been updated in our system today. 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 04/11/2020 12:50:57 OBGyn Episode Ob Episode Information Episode Created Date Number of Fetuses Patient Bloodtype Patient rh Status Prepregnancy Weight lbs Domestic Partner Domestic Partner Phone Father Name Patient Safety Coordinator Status 04/11/19 21 1 CLOSED Fetus Data [...] Domestic Partner Domestic Partner Phone Father Name Patient Safety Coordinator Status 04/11/19 21 1 CLOSED Fetus Data [...]
[2024-07-05 14:01] LABS: Basophils Percent Auto 0.5 % (0.2-1.2); Eosinophils Absolute Auto 0.1 K/mm3 (0-0.3); Eosinophils Percent Auto 1.1 % (0-4.4); Hematocrit 33.8 % (37.0-47.0); Hemoglobin 10.3 g/dL (12.0-15.0); Immature Granulocyte Absolute 0.02 K/mm3 (0.00-0.031); Immature Granulocyte Percent A 0.2 % (0-0.5); Lymphocytes Absolute Auto 2.29 K/mm3 (0.9-3.2); Lymphocytes Percent Auto 26.2 % (18.3-44.2); Mean Corpuscular HGB Conc 30.5 g/dl (32-36); Mean Corpuscular Hemoglobin 22.9 pg (26-34); Mean Corpuscular Volume 75.3 fl (80-100); Monocytes Absolute Auto 0.6 K/mm3 (0.1-0.6); Monocytes Percent Auto 6.3 % (2.6-8.5); Neutrophils Absolute Auto 5.7 K/mm3 (1.3-6.7); Neutrophils Percent Auto 65.7 % (45.5-73.1); Platelet Count Result 305 k/mm3 (150-375); Red Blood Count 4.49 M/mm3 (4.2-5.4); Red Cell Distribution Width 15.8 % (11.5-14.5); White Blood Count 8.7 K/mm3 (4.5-10.0)
[2024-07-05 16:29] LABS: Iron 28 ug/dL (37-170)
[2024-07-05 16:39] LABS: Percent Iron Saturation 7 % (20-50)
[2024-07-05 17:06] LABS: Ferritin 4.87 ng/mL (6.24-137)
== END 2024-07-05 13:18 | disposition home or self-care (01) ==
PROVIDERS: PCP Family Medicine; Visit Provider Family Medicine
DX: D50.9 Iron deficiency anemia, unspecified (principal)
CPT/HCPCS: 36415; 82728; 83540; 83550; 85025